=== PATIENT | male | born 1985 | race Caucasian/White ===

== ENCOUNTER 2017-03-30 18:46 | Emergency (ER) | payer SELFPAY ==
[~2017-03-30] VITALS: Ht 167.6 cm; Wt 97.1 kg
[2017-03-30 18:52] VITALS: Ht 167.6 cm; Wt 97.1 kg
[2017-03-30 20:01] VITALS: BP 139/79
== END 2017-03-30 20:28 | disposition home or self-care (01) ==
LOC: ED 18:46
DX: J09.X2 Influenza due to identified novel influenza A virus with other respiratory manifestations (principal)
CPT/HCPCS: J1885

== ENCOUNTER 2018-02-24 18:38 | Emergency (ER) | payer OTHER ==
[~2018-02-24] VITALS: Ht 167.6 cm; Wt 98.0 kg
[2018-02-24 18:44] VITALS: Ht 167.6 cm; Wt 98.0 kg
[2018-02-24 21:41] VITALS: BP 131/76
== END 2018-02-24 21:41 | disposition home or self-care (01) ==
LOC: ED 18:38
DX: R07.89 Other chest pain (principal); S67.196A Crushing injury of right little finger, initial encounter; W20.8XXA Other cause of strike by thrown, projected or falling object, initial encounter; Y93.89 Activity, other specified; Y92.89 Other specified places as the place of occurrence of the external cause; Y99.8 Other external cause status
CPT/HCPCS: A4570

== ENCOUNTER 2018-05-18 11:39 | Emergency (ER) | payer OTHER ==
[~2018-05-18] VITALS: Ht 167.6 cm; Wt 100.3 kg
[2018-05-18 12:06] VITALS: Ht 167.6 cm; Wt 100.3 kg
[2018-05-18 12:48] VITALS: BP 153/86
== END 2018-05-18 12:48 | disposition home or self-care (01) ==
LOC: ED 11:39
DX: S93.401A Sprain of unspecified ligament of right ankle, initial encounter (principal); X50.1XXA Overexertion from prolonged static or awkward postures, initial encounter; Y93.01 Activity, walking, marching and hiking; Y92.89 Other specified places as the place of occurrence of the external cause; Y99.8 Other external cause status
CPT/HCPCS: Q0092